=== PATIENT | male | born 1985 | race Two or more races ===

== ENCOUNTER 2023-01-01 02:55 | Emergency (ER) | payer OTHER ==
[~2023-01-01] VITALS: Ht 185.4 cm; Wt 93.0 kg
[2023-01-01] MEDS ORDERED: INTESTINEX680 M1 PO (07:27)
[2023-01-01] MEDS ORDERED: DICY20TA PO (07:27)
[2023-01-01] MEDS ORDERED: PEPCID20 MG PO (07:27)
[2023-01-01] MEDS ORDERED: CIPRO500 MG PO (07:27)
== END 2023-01-01 07:53 | disposition home or self-care (01) ==
LOC: ER 02:55
DX: R31.9 Hematuria, unspecified (principal)